=== PATIENT | female | born 1995 | race Caucasian/White ===

== ENCOUNTER 2017-11-21 23:30 | Observation (INO) | payer OTHER ==
[2017-11-22] MEDS: HYDROmorphONE 1 MG/ML SYG IV (02:39)
[2017-11-22] MEDS: ONDANSETRON 4 MG INJ IV ×2 (02:39→18:49)
[2017-11-22] MEDS: SOD CHLORIDE 0.9% 1,000 ML IV ×4 (02:40→23:59)
[2017-11-22 03:12] LABS: ADD MAN DIFF? NO
[2017-11-22] MEDS: BARIUM SULF 2% 450 ML BTL (BERRY SMOOTHIE) PO (03:14)
[2017-11-22 03:23] LABS: BASOPHIL # 0.1 10^3/ul (0.0-0.1); BASOPHILS % 0.3 % (0.0-2.0); HEMOGLOBIN 16.1 g/dl (12.0-16.0); LYMPHOCYTES # 1.8 10^3/ul (0.8-2.9); LYMPHOCYTES % 10.6 % (15.0-51.0); MEAN CORPUSCULAR HEMOGLOBIN 32.5 pg (29.0-33.0); MEAN CORPUSCULAR HGB CONC 35.8 g/dl (32.0-37.0); MEAN CORPUSCULAR VOLUME 90.7 fl (82.0-101.0); MEAN PLATELET VOLUME 11.9 fl (7.4-10.4); MONOCYTE # 0.7 10^3/ul (0.3-0.9); MONOCYTES % 4.2 % (0.0-11.0); NEUTROPHIL # 13.9 10^3/ul (1.6-7.5); NEUTROPHILS % 84.5 % (39.0-77.0); PLATELET COUNT 246 10^3/UL (140-415); RED BLOOD COUNT 4.96 10^6/ul (4.20-5.40); RED CELL DISTRIBUTION WIDTH 13.2 % (11.5-14.5)
[2017-11-22 03:23] LABS: WHITE BLOOD COUNT 16.5 10^3/ul (4.8-10.8)
[2017-11-22 03:42] LABS: ALANINE AMINOTRANSFERASE 26 IU/L (13-69); ALBUMIN 5.8 g/dl (3.3-4.9); ALBUMIN/GLOBULIN RATIO 1.38; ALKALINE PHOSPHATASE 89 IU/L (42-121); ANION GAP 30 (8-16); ASPARTATE AMINO TRANSFERASE 27 IU/L (15-46); BILIRUBIN,INDIRECT 0.4 mg/dl (0-1.1); BILIRUBIN,TOTAL 0.4 mg/dl (0.2-1.3); BLOOD UREA NITROGEN 17 mg/dl (7-20); CALCIUM 10.7 mg/dl (8.4-10.2); CARBON DIOXIDE 15 mmol/L (21-31); CHLORIDE 105 mmol/L (97-110); CREATININE 0.79 mg/dl (0.44-1.00); GLUCOSE 119 mg/dl (70-220); LIPASE 75 U/L (23-300); POTASSIUM 3.8 mmol/L (3.5-5.1); SODIUM 146 mmol/L (135-144)
[2017-11-22] MEDS: SOD CHLORIDE 0.9% 100 ML (04:37)
[2017-11-22] MEDS: IOHEXOL 300MG/ML 150 ML BTL (04:37)
[2017-11-22] MEDS: ERTAPENEM SODIUM 1 GM in SOD CHLORIDE 0.9% 100 ML IVPB (06:30)
[2017-11-22] MEDS ORDERED: ACETAMINOPHEN 325 MG TAB PO ×2 (06:30→10:30)
[2017-11-22] MEDS ORDERED: ONDANSETRON 4 MG INJ IV (06:30)
[2017-11-22] MEDS: METOCLOPRAMIDE 10 MG INJ IV (07:07)
[2017-11-22] MEDS ORDERED: MAGNESIUM HYDROXIDE 30ML CUP PO (10:30)
[2017-11-22] MEDS ORDERED: DOCUSATE SODIUM 100 MG CAP PO (10:30)
[2017-11-22] MEDS ORDERED: ACETAMINOPHEN 650 MG SUPP PR (10:30)
[2017-11-22] MEDS ORDERED: BISACODYL 10 MG SUPP PR (10:30)
[2017-11-22] MEDS ORDERED: HYDROCODONE/APAP (5/325) TAB PO ×2 (10:30)
[2017-11-22] MEDS ORDERED: NACL 0.9% 3 ML SYG IV (10:30)
[2017-11-22] MEDS: morphine 2 MG INJ IV (18:49)
[2017-11-22] MEDS: DIPHENHYDRAMINE 25 MG CAP PO (23:56)
[2017-11-23] MEDS: DIPHENHYDRAMINE 25 MG CAP PO ×3 (03:46→13:05)
[2017-11-23 05:44] LABS: ADD MAN DIFF? NO
[2017-11-23 05:46] LABS: WHITE BLOOD COUNT 8.1 10^3/ul (4.8-10.8)
[2017-11-23 05:46] LABS: ABNORMAL IP MESSAGE 1; BASOPHILS % 0.4 % (0.0-2.0); EOSINOPHILS # 0.4 10^3/ul (0.0-0.5); EOSINOPHILS % 4.6 % (0.0-7.0); HEMATOCRIT 38.7 % (37.0-47.0); HEMOGLOBIN 13.2 g/dl (12.0-16.0); LYMPHOCYTES # 2.2 10^3/ul (0.8-2.9); LYMPHOCYTES % 27.1 % (15.0-51.0); MEAN CORPUSCULAR HEMOGLOBIN 32.4 pg (29.0-33.0); MEAN CORPUSCULAR HGB CONC 34.1 g/dl (32.0-37.0); MEAN CORPUSCULAR VOLUME 95.1 fl (82.0-101.0); MEAN PLATELET VOLUME 11.6 fl (7.4-10.4); MONOCYTE # 0.5 10^3/ul (0.3-0.9); MONOCYTES % 6.7 % (0.0-11.0); NEUTROPHIL # 4.9 10^3/ul (1.6-7.5); NEUTROPHILS % 60.8 % (39.0-77.0); PLATELET COUNT 180 10^3/UL (140-415); RED BLOOD COUNT 4.07 10^6/ul (4.20-5.40); RED CELL DISTRIBUTION WIDTH 13.9 % (11.5-14.5)
[2017-11-23 05:56] LABS: HEMOGLOBIN A1C 4.7 % (0-5.9)
[2017-11-23 05:56] LABS: POSITIVE DIFF @See below
[2017-11-23] MEDS: PANTOPRAZOLE 40 MG INJ IV (06:09)
[2017-11-23 06:13] LABS: ALANINE AMINOTRANSFERASE 24 IU/L (13-69); ALBUMIN 4.2 g/dl (3.3-4.9); ALBUMIN/GLOBULIN RATIO 1.44; ALKALINE PHOSPHATASE 49 IU/L (42-121); ANION GAP 15 (8-16); ASPARTATE AMINO TRANSFERASE 19 IU/L (15-46); BILIRUBIN,INDIRECT 0.4 mg/dl (0-1.1); BILIRUBIN,TOTAL 0.4 mg/dl (0.2-1.3); BLOOD UREA NITROGEN 8 mg/dl (7-20); CALCIUM 9.4 mg/dl (8.4-10.2); CARBON DIOXIDE 24 mmol/L (21-31); CHLORIDE 105 mmol/L (97-110); CHOL/HDL RATIO 2.3 RATIO; CHOLESTEROL 125 mg/dl (100-200); CREATININE 0.68 mg/dl (0.44-1.00); GLUCOSE 80 mg/dl (70-220); HDL CHOLESTEROL 54 mg/dl (33-83); LDL CHOLESTEROL,CALCULATED 62 mg/dl; PHOSPHORUS 4.3 mg/dl (2.5-4.9); POTASSIUM 4.3 mmol/L (3.5-5.1); SODIUM 140 mmol/L (135-144); TOTAL PROTEIN 7.1 g/dl (6.1-8.1); TRIGLYCERIDES 47 mg/dl (0-149)
[2017-11-23 06:27] LABS: FREE THYROXINE INDEX (Calc) 2.67 ug/ml (0.65-3.89); T3 UPTAKE 39.8 % (23.5-40.5); T4 (THYROXINE) 6.7 ug/dl (5.5-11.0)
[2017-11-23 06:41] LABS: THYROID STIMULATING HORMONE 0.806 MIU/L (0.465-4.680)
[2017-11-23] MEDS ORDERED: morphine LIQ (10 MG/5 ML) CUP PO (13:30)
[2017-11-24] MEDS ORDERED: PANTOPRAZOLE (EC) 40 MG TAB PO (06:00)
== END 2017-11-23 14:45 | disposition home or self-care (01) ==
LOC: E/R 23:30 → PP2 11-22 06:08
DX: R11.2 Nausea with vomiting, unspecified (principal); G40.909 Epilepsy, unspecified, not intractable, without status epilepticus; F17.210 Nicotine dependence, cigarettes, uncomplicated; F12.90 Cannabis use, unspecified, uncomplicated; D72.829 Elevated white blood cell count, unspecified
CPT/HCPCS: 36415; 72192; 74177; 80053; 80061; 82962; 83036; 83690; 83735; 84100; 84436; 84443; 84479; 84703; 85025; 87040; 96374; 96375; 99285-25; G0378

== ENCOUNTER 2018-03-17 23:51 | Emergency (ER) | payer OTHER ==
[2018-03-18] MEDS: ONDANSETRON 4 MG INJ IV (01:01)
[2018-03-18] MEDS: FAMOTIDINE 20 MG INJ IV (01:01)
[2018-03-18] MEDS: SOD CHLORIDE 0.9% 1,000 ML IV (01:05)
[2018-03-18 01:14] LABS: ADD MAN DIFF? NO
[2018-03-18 01:17] LABS: BASOPHIL # 0.1 10^3/ul (0.0-0.1); BASOPHILS % 0.4 % (0.0-2.0); HEMATOCRIT 40.6 % (37.0-47.0); HEMOGLOBIN 14.5 g/dl (12.0-16.0); LYMPHOCYTES # 1.1 10^3/ul (0.8-2.9); LYMPHOCYTES % 9.4 % (15.0-51.0); MEAN CORPUSCULAR HEMOGLOBIN 32.3 pg (29.0-33.0); MEAN CORPUSCULAR HGB CONC 35.7 g/dl (32.0-37.0); MEAN CORPUSCULAR VOLUME 90.4 fl (82.0-101.0); MONOCYTE # 0.7 10^3/ul (0.3-0.9); MONOCYTES % 5.5 % (0.0-11.0); NEUTROPHIL # 10.1 10^3/ul (1.6-7.5); NEUTROPHILS % 84.4 % (39.0-77.0); PLATELET COUNT 260 10^3/UL (140-415); RED BLOOD COUNT 4.49 10^6/ul (4.20-5.40); RED CELL DISTRIBUTION WIDTH 11.4 % (11.5-14.5)
[2018-03-18 01:35] LABS: ALANINE AMINOTRANSFERASE 17 IU/L (13-69); ALBUMIN/GLOBULIN RATIO 1.31; ALKALINE PHOSPHATASE 89 IU/L (42-121); ANION GAP 22 (8-16); ASPARTATE AMINO TRANSFERASE 28 IU/L (15-46); BILIRUBIN,INDIRECT 0.5 mg/dl (0-1.1); BILIRUBIN,TOTAL 0.5 mg/dl (0.2-1.3); BLOOD UREA NITROGEN 13 mg/dl (7-20); CARBON DIOXIDE 23 mmol/L (21-31); CHLORIDE 105 mmol/L (97-110); CREATININE 0.76 mg/dl (0.44-1.00); GLUCOSE 109 mg/dl (70-220); LIPASE 61 U/L (23-300); POTASSIUM 3.8 mmol/L (3.5-5.1); SODIUM 146 mmol/L (135-144); TOTAL PROTEIN 8.8 g/dl (6.1-8.1)
[2018-03-18 03:24] LABS: URINE BLOOD (Dip) POC Negative (NEGATIVE); URINE GLUCOSE (Dip) POC Negative (NEGATIVE); URINE KETONES (Dip) POC 3+ (NEGATIVE); URINE LEUKOCYTE EST (Dip) POC Negative (NEGATIVE); URINE NITRITE (Dip) POC Negative (NEGATIVE); URINE TOTAL PROTEIN POC 2+ (NEGATIVE)
[2018-03-18] MEDS: METOCLOPRAMIDE 10 MG INJ IV (03:37)
== END 2018-03-18 04:12 | disposition home or self-care (01) ==
LOC: FTE 23:51
DX: R11.2 Nausea with vomiting, unspecified (principal); F17.210 Nicotine dependence, cigarettes, uncomplicated
CPT/HCPCS: 36415; 76705; 80053; 81003; 81025; 83690; 85025; 96374; 96375; 99285-25

== ENCOUNTER 2019-07-10 18:02 | Emergency (ER) | payer OTHER ==
[2019-07-10 18:54] LABS: ADD MAN DIFF? NO
[2019-07-10] MEDS: SOD CHLORIDE 0.9% 1,000 ML IV (18:55)
[2019-07-10] MEDS: ONDANSETRON 4 MG INJ IV (18:55)
[2019-07-10] MEDS: LORAZEPAM 2 MG INJ IV (18:55)
[2019-07-10 18:59] LABS: WHITE BLOOD COUNT 18.1 10^3/ul (4.8-10.8)
[2019-07-10 18:59] LABS: BASOPHIL # 0.1 10^3/ul (0.0-0.1); BASOPHILS % 0.5 % (0.0-2.0); EOSINOPHILS % 0.1 % (0.0-7.0); HEMATOCRIT 43.6 % (37.0-47.0); HEMOGLOBIN 14.4 g/dl (12.0-16.0); LYMPHOCYTES # 2.4 10^3/ul (0.8-2.9); LYMPHOCYTES % 13.3 % (15.0-51.0); MEAN CORPUSCULAR HEMOGLOBIN 31.2 pg (29.0-33.0); MEAN CORPUSCULAR VOLUME 94.6 fl (82.0-101.0); MEAN PLATELET VOLUME 11.3 fl (7.4-10.4); MONOCYTE # 0.8 10^3/ul (0.3-0.9); MONOCYTES % 4.3 % (0.0-11.0); NEUTROPHIL # 14.7 10^3/ul (1.6-7.5); NEUTROPHILS % 81.3 % (39.0-77.0); PLATELET COUNT 229 10^3/UL (140-415); RED BLOOD COUNT 4.61 10^6/ul (4.20-5.40); RED CELL DISTRIBUTION WIDTH 13.4 % (11.5-14.5)
[2019-07-10 19:15] LABS: ALANINE AMINOTRANSFERASE 24 IU/L (13-69); ALBUMIN 5.3 g/dl (3.3-4.9); ALBUMIN/GLOBULIN RATIO 1.32; ALKALINE PHOSPHATASE 71 IU/L (42-121); ANION GAP 18 (5-13); ASPARTATE AMINO TRANSFERASE 32 IU/L (15-46); BILIRUBIN,INDIRECT 0.6 mg/dl (0-1.1); BILIRUBIN,TOTAL 0.6 mg/dl (0.2-1.3); BLOOD UREA NITROGEN 7 mg/dl (7-20); CALCIUM 9.8 mg/dl (8.4-10.2); CARBON DIOXIDE 19 mmol/L (21-31); CHLORIDE 106 mmol/L (97-110); CREATININE 0.58 mg/dl (0.44-1.00); Estimated GFR > 60 mL/min (>60); GLUCOSE 89 mg/dl (70-220); LIPASE 58 U/L (23-300); POTASSIUM 3.5 mmol/L (3.5-5.1); SODIUM 143 mmol/L (135-144); TOTAL PROTEIN 9.3 g/dl (6.1-8.1)
[2019-07-10] MEDS: DEXTROSE 5%-0.45% NACL 500 ML BAG IV* (19:32)
== END 2019-07-10 22:19 | disposition home or self-care (01) ==
LOC: E/R 18:02
DX: E87.2 Acidosis (principal); F17.210 Nicotine dependence, cigarettes, uncomplicated; E86.0 Dehydration
CPT/HCPCS: 36415; 80053; 83690; 84703; 85025; 96374; 96375; 99284-25